=== PATIENT | female | born 1985 | race Caucasian/White ===

== ENCOUNTER 2019-12-18 14:33 | Emergency (ER) | payer SELFPAY ==
[~2019-12-18] VITALS: Ht 152.4 cm; Wt 90.3 kg
[2019-12-18 18:36] VITALS: BP 137/105
== END 2019-12-18 22:12 | disposition home or self-care (01) ==
LOC: ER 14:33
DX: S93.401A Sprain of unspecified ligament of right ankle, initial encounter (principal); S76.012A Strain of muscle, fascia and tendon of left hip, initial encounter; S39.012A Strain of muscle, fascia and tendon of lower back, initial encounter; S63.502A Unspecified sprain of left wrist, initial encounter; S09.90XA Unspecified injury of head, initial encounter; F17.210 Nicotine dependence, cigarettes, uncomplicated; W19.XXXA Unspecified fall, initial encounter; Y93.89 Activity, other specified; Y99.8 Other external cause status; Y92.89 Other specified places as the place of occurrence of the external cause
CPT/HCPCS: 72100; 73100; 73501; 73560